=== PATIENT | female | born 1965 | race Caucasian/White ===

== ENCOUNTER 2019-09-09 07:28 | Outpatient (CLI) | payer OTHER, SELFPAY ==
--- NOTE | ~2019-09-09 | CT_ITS ---
EXAMINATION: CT abdomen pelvis wo/w con DATE: 09/09/2019 08:28 INDICATION: Hematuria, right-sided back pain TECHNIQUE: Computed tomography (CT) of the abdomen and pelvis was performed without intravenous contr ast. CT of the abdomen and pelvis was then performed with a total of 130 mL Omnipaque 350 intravenous contrast using a double-bolus technique for simultaneous opacification of the renal parenchyma and r enal collecting system. The dose-length product (DLP) was 3046.71 mGy-cm. Automated exposure control and iterative reconstruction technique were employed. COMPARISON: None FINDINGS: Minimal dependent atelectasis is present in the lung bases. The heart size is normal. The l iver, spleen, pancreas, and right adrenal gland are normal. There is a 1.2 cm nodule of the left adre nal gland. Multiple stones are present in the nondistended gallbladder. There does appear to be mild gallbladder wall thickening. The kidneys are unremarkable. No suspicious renal or urothelial lesion i s identified. Although incompletely distended, the bladder appears normal. No stones are identified i n the kidneys, ureters, or bladder. There is no hydronephrosis or hydroureter. No pathologically enla rged abdominal or pelvic lymph nodes are identified. There is no free intraperitoneal gas or evidence of bowel obstruction. There are changes of hysterectomy and oophorectomy. A 6.5 x 4.3 cm predominant ly cystic mass is seen in the left ovary. There is mild to moderate lumbar spondylosis. IMPRESSION: 1. No CT correlate for hematuria. 2. Cholelithiasis with mild gallbladder wall thickening which could reflect chronic cholecystitis. Re commend clinical correlation for right upper quadrant tenderness. 3. 6.5 cm mass of the left ovary. Further evaluation with ultrasound is recommended. Reviewed, dictated and finalized at location A. CADDY IMPRESSION: 1. No CT correlate for hematuria. 2. Cholelithiasis with mild gallbladder wall thickening which could reflect chr onic cholecystitis. Recommend clinical correlation for right upper quadrant ten derness. 3. 6.5 cm mass of the left ovary. Further evaluation with ultrasound is recomme nded.
[2019-09-09 08:07] LABS: Blood Urea Nitrogen 16 mg/dL (8-26); Estimated Glomerular Filt Rate > 60
== END 2019-09-09 07:29 | disposition home or self-care (01) ==
PROVIDERS: PCP Physician Assistant; Visit Provider Family Medicine
DX: R31.9 Hematuria, unspecified (principal); K80.20 Calculus of gallbladder without cholecystitis without obstruction
CPT/HCPCS: 74178; Q9967

== ENCOUNTER 2019-09-18 10:30 | Outpatient (CLI) | payer OTHER, SELFPAY ==
--- NOTE | ~2019-09-18 | US_ITS ---
EXAMINATION: US pelvic complete w TV DATE: 09/18/2019 11:12 INDICATION: Left ovarian mass seen on recent CT Comparison:No prior studies for comparison. TECHNIQUE: Multiple transabdominal sonographic images of the pelvis performed. FINDINGS: The uterus is surgically absent. The right ovary is surgically absent. The left ovary measures 5.6 x 4.3 x 4.4 cm. There is a complex cystic mass of the left ovary measuring 4.2 x 4.8 x 3.8 cm. No free fluid in the pelvis. IMPRESSION: 1. Complex 4.8 cm left ovarian cystic mass. Considerations include physiologic cyst, hemorrhagic cyst as well as cystadenoma/cystadenocarcinoma. Follow-up ultrasound in 4-6 weeks recommended to assess f or resolution. Reviewed, dictated and finalized at location A. N DIPPER IMPRESSION: 1. Complex 4.8 cm left ovarian cystic mass. Considerations include physiologic cyst, hemorrhagic cyst as well as cystadenoma/cystadenocarcinoma. Follow-up ult rasound in 4-6 weeks recommended to assess for resolution.
== END 2019-09-18 10:31 | disposition home or self-care (01) ==
PROVIDERS: PCP Family Medicine; Visit Provider Family Medicine
DX: N83.9 Noninflammatory disorder of ovary, fallopian tube and broad ligament, unspecified (principal)
CPT/HCPCS: 76830; 76856

== ENCOUNTER 2019-10-07 01:06 | Day surgery (SDC) | payer OTHER, SELFPAY ==
--- NOTE | 2019-10-07 07:24 | WPDHPUPDATE1 ---
History and Physical Update Update Date/Time: 10/07/19 07:24 History and Physical has been reviewed, including an updated exam of the patient. There are NO changes in the patient's condition. Risks, benefits, and alternatives have been discussed and questions answered. Patient agrees to proceed with procedure.
[2019-10-07 07:51] VITALS: BP 135/80; PULSE 89; RESP 20; TEMP 36.9; O2SAT 96
[2019-10-07] MEDS: LACTATED RINGERS 1,000 ML 30 ML IV CONT (08:20)
--- NOTE | 2019-10-07 08:31 | WPDANESEPPF ---
Anes - Initial Pre Proc Eval Procedure: Operation Date: 10/07/19 09:15 Proposed Procedures p Cystoscopy Bladder Biopsy - Mahin Smith MD Date/Time: 10/07/19 08:31 Surgeon: Mahin Smith MD Pre Op Diagnosis: Gross Hematuria Patient Data Age: 54 Gender: F Height: Weight: 136 kg Allergies Allergy/AdvReac Type Severity Reaction Status Date / Time No Known Allergies Allergy Unverified 10/07/19 08:29 Home Medications Medication Instructions Recorded Confirmed Type meloxicam 15 mg PO DAILY 07/28/19 10/05/19 History quinapril-hydrochlorothiazide 1 tablet PO DAILY 07/28/19 10/05/19 History aspirin [Aspirin Low Dose] 81 mg PO DAILY 10/05/19 10/05/19 History lactobacillus combination no.8 2 mmu cells PO DAILY 10/05/19 10/05/19 History [Adult Probiotic] Patient hx anesthesia problems: none Family hx anesthesia problems: post op nausea/vomiting PMFSH Past Medical History Medical History Hypertension Surgical History Surgical History History of History of tubal ligation Anes - Eval Final PreProcedure Day of Procedure 10/07/19 08:31 Patient weight: morbidly obese Heart: regular rate and rhythm Lungs: clear to auscultation Airway: Mallampati scale class II Neurological: alert and oriented Last oral intake: >/= 8 hours ASA classification: III Emergent: no Anesthetic plan: proceed Anesthesia type and monitoring: general GIVS and standard monitoring Informed Consent: The patient's anesthetic plan and its attendant risks and benefits were discussed with the patient/family/POA. Questions were solicited and answers provided to the satisfaction of the patient/family/POA.
[2019-10-07] MEDS: KETOROLAC 30 MG/ML VIAL (*BKC) IV PUSH (09:39)
--- NOTE | 2019-10-07 09:50 | P.OP_ITS ---
Procedure Note - Detailed Date of procedure: 10/07/19 Pre-op diagnosis: Gross Hematuria Post-op diagnosis: same Procedure performed: Cystoscopy with bladder biopsy Description of procedure: The patient is brought to the operative suite where s he is prepped and draped in a routine sterile fashion while in the dorsal lithotomy position. 2% lidocaine jelly was introduced in the urethra and allowed to stand for an appropriate period of time. Systemic sedation was administered by the anesthesia department. Cystoscopy was undertaken with a 21 F rigid cystoscope. The bladder neck and urethra were endoscopically normal. Cystoscopy with planned bladder biopsy today. The bladder now looks perfectly normal. She told me preoperatively that she passed a small stone or clot several days ago and has since had no problems. I suspect that she the area of hyperemia lateral to her left ureteral orifice was likely a small intramural ureteral stone that was not identified on the CT scan. I did go ahead and get a small biopsy from that side but suspect it will be normal.There was no intravesical foreign body or neoplasm. She had a single orthoptic ureteral orifice bilaterally. There was clear efflux from each ureteral orifice. Using a cold-cup biopsy forceps I obtained 1 biopsies from the previously affected area and extensively cauterized the sites with a rollerball electrode. At this point the cystoscope was removed. Anesthesia: MAC Surgeon: Mahin Smith MD Estimated blood loss (mL): 0 Drains: No Packing: No Pathology: yes Complications: No immediate complications Condition: stable Disposition: PACU
[2019-10-07 09:53] VITALS: BP 129/81; PULSE 83; RESP 16; O2SAT 98
[2019-10-07 10:15] VITALS: BP 141/76; PULSE 82; RESP 16; O2SAT 98
[2019-10-07 10:30] VITALS: BP 149/77; PULSE 71; RESP 16
== END 2019-10-07 10:41 | disposition home or self-care (01) ==
PROVIDERS: PCP Physician Assistant; Visit Provider Urology
PROC: 0TBB8ZX Excision of Bladder, Via Natural or Artificial Opening Endoscopic, Diagnostic (ICD-10-PCS; CPT 52204; principal; 2019-10-07 09:15)
DX: N30.20 Other chronic cystitis without hematuria (principal); I10 Essential (primary) hypertension; Z79.82 Long term (current) use of aspirin; E66.01 Morbid (severe) obesity due to excess calories
CPT/HCPCS: 52204; 88108; 88305; J1885; J2250; J2405; J2704; J3010; J7120

== ENCOUNTER 2019-12-18 07:40 | Outpatient (CLI) | payer OTHER, SELFPAY ==
--- NOTE | ~2019-12-18 | US_ITS ---
US pelvic complete w TV DATE: 12/18/2019 08:24 INDICATION: Complex left ovarian cyst follow-up TECHNIQUE: Real-time imaging via transabdominal and transvaginal approaches COMPARISON: 09/18/[address] abdomen pelvis FINDINGS: There is a complex left adnexal mass which is predominantly cystic, with multiple septation s. There is an approximately 1 cm mural soft tissue nodule. Malignancy is not excluded. The lesion me asures to 3.5 x 5.7 cm dimension. The uterus is absent. The right ovary is not detected. No free fluid is detected. IMPRESSION: Complex multiloculated cystic lesion with approximate 1 cm solid mural nodule. Ovarian or adnexal malignancy is not excluded. Gynecologic consultation is recommended. Reviewed, dictated and finalized at Location A. Reviewed, dictated and finalized at location A. IMPRESSION: Complex multiloculated cystic lesion with approximate 1 cm solid mu ral nodule. Ovarian or adnexal malignancy is not excluded. Gynecologic consulta tion is recommended.
== END 2019-12-18 07:41 | disposition home or self-care (01) ==
PROVIDERS: PCP Physician Assistant; Visit Provider Obstetrics & Gynecology Gynecology
DX: N83.202 Unspecified ovarian cyst, left side (principal)
CPT/HCPCS: 76830; 76856

== ENCOUNTER 2020-05-06 08:43 | Outpatient (CLI) | payer OTHER, SELFPAY ==
--- NOTE | ~2020-05-06 | US_ITS ---
EXAMINATION: US pelvic complete EXAM DATE: 05/06/2020 09:11 INDICATION: Left ovarian cyst follow-up. Hysterectomy and right oophorectomy. TECHNIQUE: Pelvic transabdominal sonogram was performed. There are multiple grayscale and Doppler im ages available for interpretation. Comparison is made to prior examination from 12/18/2019, 09/18/2019. FINDINGS: Uterus not identified. Bladder unremarkable. Vaginal cuff poorly visualized transabdominall y. Right adnexa: The ovary is not identified. There is no adnexal mass. Left adnexa: Left ovary has 2 cystic regions inside measuring 2.8 x 1.6 and 2.0 x 2.3 cm, although th iftikhar could actually be the same cystic region. There was similar appearance and size on the previous e xamination in December, likely the same lesion or lesions. Overall cystic component is smaller compared t o exam from September 2019. Possible cystic ovarian neoplasm but more likely indolent histology stable co mpared to December and decreased compared to September. IMPRESSION: Persistent small cystic left ovarian lesion or lesions, decreased in size compared to Sep ch. Possible cystic ovarian neoplasm but more likely benign than malignant. Reviewed, dictated and finalized at location A. IMPRESSION: Persistent small cystic left ovarian lesion or lesions, decreased i n size compared to September. Possible cystic ovarian neoplasm but more likely pao gn than malignant.
== END 2020-05-06 08:44 | disposition home or self-care (01) ==
PROVIDERS: PCP Physician Assistant; Visit Provider Obstetrics & Gynecology Gynecology
DX: N83.202 Unspecified ovarian cyst, left side (principal)
CPT/HCPCS: 76856

== ENCOUNTER → 2020-06-03 10:38 | Outpatient (CLI) | payer OTHER, SELFPAY ==
--- NOTE | ~2020-06-03 | US_ITS ---
EXAMINATION: US right upper quadrant EXAM DATE: 06/03/2020 11:04 INDICATION: RUQ Abd pain TECHNIQUE: Multiple grayscale and Doppler images of the abdomen right upper quadrant were obtained (april y a technologist who performed the scan) and subsequently reviewed. Correlation is made to CT abdomen 09/09/2019. FINDINGS: The pancreatic head and body are normal in appearance. The pancreatic tail is not visualized. There is echogenic liver parenchyma, hepatic steatosis. There are no focal liver lesions identified. Th ere is no evidence of intrahepatic biliary duct dilation. Portal venous flow was seen in the hepatop edal, normal direction and has normal Doppler waveform. No right-sided hydronephrosis. Common bile duct measures 4 mm, which is normal. There are several sizable gallstones surrounding an otherwise contracted gallbladder with mild wall thickening. No pericholecystic fluid. Technologist lazarus rforming exam reports patient did not demonstrate sonographic Stanley's sign. Please note that this s ign is less reliable in patients who have received pain medication. IMPRESSION: 1. Cholelithiasis, contracted gallbladder and mild wall thickening. Possible chronic cholecystitis. Consider HIDA scan. 2. Hepatic steatosis. Reviewed, dictated and finalized at location A. N CHECKER IMPRESSION: 1. Cholelithiasis, contracted gallbladder and mild wall thickening. Possible c hronic cholecystitis. Consider HIDA scan. 2. Hepatic steatosis.
== END ==
PROVIDERS: Visit Provider Family Medicine
DX: R10.11 Right upper quadrant pain (principal); K80.20 Calculus of gallbladder without cholecystitis without obstruction; K76.0 Fatty (change of) liver, not elsewhere classified
CPT/HCPCS: 76705

== ENCOUNTER 2020-06-26 02:00 | Outpatient (CLI) | payer OTHER, SELFPAY ==
[2020-06-26 18:35] LABS: SARS-CoV-2 RNA PCR Negative
== END 2020-06-26 02:01 | disposition home or self-care (01) ==
LOC: ANHCOVIDDT 02:00
PROVIDERS: PCP Family Medicine; Visit Provider Surgery
DX: Z01.812 Encounter for preprocedural laboratory examination (principal); Z20.828 Contact with and (suspected) exposure to other viral communicable diseases
CPT/HCPCS: 87635; C9803; U0003

== ENCOUNTER 2020-06-26 08:01 | Outpatient (CLI) | payer OTHER, SELFPAY ==
--- NOTE | 2020-06-26 08:04 | ECG_ITS ---
Measurements Intervals [place] Rate: 78 P: 37 IA: 178 QRS: -19 QRSD: 109 T: 24 QT: 386 QTc: 442 Interpretive Statements SINUS RHYTHM WITH SINUS ARRHYTHMIA POSSIBLE LEFT ATRIAL ENLARGEMENT POOR R WAVE PROGRESSION, ANTERIOR LEADS BORDERLINE ECG Electronically Signed On 06-26-2020 8:26:36 TRANSPORT OPERATIONS INSPECTOR by Nadir Chaparro D.O.
[2020-06-26 08:50] LABS: Anion Gap 8 mmol/L (8-16); Blood Urea Nitrogen 19 mg/dL (7-17); Calcium 9.6 mg/dL (8.4-10.2); Carbon Dioxide 27 mmol/L (22-30); Chloride 103 mmol/L (98-107); Estimated Glomerular Filt Rate > 60; Glucose 102 mg/dL (65-105); Potassium 3.9 mmol/L (3.4-5.0); Sodium 138 mmol/L (137-145)
[2020-06-26 08:51] LABS: Alanine Aminotransferase 29 U/L (4-35); Albumin Level 4.2 g/dL (3.5-5.1); Alkaline Phosphatase 111 U/L (38-126); Amylase 51 U/L (30-110); Aspartate Amino Transferase 25 U/L (14-36); Bilirubin,Total 0.8 mg/dL (0.2-1.3); Lipase 45 U/L (23-300)
== END 2020-06-26 08:02 | disposition home or self-care (01) ==
LOC: ANHSURGERY 08:04
PROVIDERS: Anesthesiology; PCP Physician Assistant; Visit Provider Surgery
DX: Z01.818 Encounter for other preprocedural examination (principal); K80.10 Calculus of gallbladder with chronic cholecystitis without obstruction; I10 Essential (primary) hypertension; R94.31 Abnormal electrocardiogram [ECG] [EKG]
CPT/HCPCS: 36415; 80048; 80076; 82150; 83690; 86850; 86900; 86901; 93005

== ENCOUNTER 2020-06-29 00:34 | Day surgery (SDC) | payer OTHER, SELFPAY ==
[2020-06-20 13:41] VITALS: BMI 51.0
[2020-06-29] VITALS (8 sets, daily range): BP systolic 128–152; BP diastolic 59–77; PULSE 67–111; RESP 12–24; TEMP 36.3–36.7; O2SAT 95–100; BMI 44.1
--- NOTE | 2020-06-29 09:49 | WPDHPUPDATE1 ---
History and Physical Update Update Date/Time: 06/29/20 09:49 History and Physical has been reviewed, including an updated exam of the patient. There are NO changes in the patient's condition. Risks, benefits, and alternatives have been discussed and questions answered. Patient agrees to proceed with procedure.
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
[2020-06-29] MEDS: LACTATED RINGERS 1,000 ML 30 ML IV CONT ×2 (10:59→12:34)
[2020-06-29] MEDS: KETOROLAC 15 MG/ML VIAL (*BKC) IV PUSH (11:00)
[2020-06-29] MEDS: ACETAMINOPHEN 500 MG TABLET 1000 MG PO (11:00)
[2020-06-29] MEDS: ceFAZolin 3 GM/D5W 100 ML 100 ML IVPB (11:25)
--- NOTE | 2020-06-29 11:30 | P.OP_ITS ---
Procedure Note - Detailed Date of procedure: 06/29/20 Pre-op diagnosis: chronic cholecystitis with stones Chronic cholecystitis, cholelithiasis Post-op diagnosis: same Procedure performed: Laparoscopic cholecystectomy Description of procedure: The patient was taken to surgery and induced into general anesthesia. The abdomen was prepped and draped. Trocars were placed in the usual fashion using 0.5% Marcaine with epinephrine and applied Medical optical trocars. A 5 millimeter camera was used. The gallbladder was decompressed with a laparoscopic aspirator. The cholecystotomy was closed with a Vicryl endo-loop. The gallbladder was retracted anterosuperiorly. Adhesions to the gallbladder were taken down so that the cholecystohepatic triangle was exposed. Traction was placed on the infu ndibulum. The cystic duct and cystic artery were dissected out very clearly. The gallbladder was dissected off the liver at its lower 3rd. Critical view was achieved. We securely clipped and divided the cystic duct and cystic artery. The gallbladder was then further retracted so that the peritoneal attachments to the liver could be divided. Once the gallbladder was freed entirely, it was placed in an Endo-Catch bag and retrieved through the 10 11 epigastric trocar site. The epigastric trocar was then replaced. We reviewed the right upper quadrant. It was irrigated and suctioned. All looked good with no evidence of bleeding or bile leakage. The Ugo Cone and Ugo Adan suture passed was used with 0 vicryl suture to close the epigastric trocar site. It was only partially effective. We evacuated CO2 and removed the trocar sleeves. The fascia at the epigastric trocar site was further closed directly with 0 Vicryl suture. Skin wounds were closed with subcuticular 4 O Monocryl skin suture. The wounds were dressed with Exofin surgical adhesive. Patient was awakened and taken to recovery in good condition. Sponge and needle counts were correct x2. Anesthesia: GETA and local (0.5% Marcaine with epinephrine) Surgeon: Triston Herrera MD Stitcher Special Machine: Cat DIALLO Estimated blood loss (mL): 5 Drains: No Packing: No Pathology: yes (Gallbladder) Complications: None Condition: stable Disposition: PACU Findings: Chronic inflammation, several large gallstones noted. No biliary ductal dilatation, fatty liver changes.
[2020-06-29] MEDS: BUPIVACAINE/EPINEPHRINE 0.25% 10 ML VIAL 30 ML INFILTRATE (11:57)
[2020-06-29] MEDS: oxyCODONE HCL (*CRX) 5 MG TAB IR PO (13:40)
== END 2020-06-29 14:35 | disposition home or self-care (01) ==
PROVIDERS: PCP Physician Assistant; Visit Provider Surgery
PROC: 0FT44ZZ Resection of Gallbladder, Percutaneous Endoscopic Approach (ICD-10-PCS; CPT 47562; principal; 2020-06-29 12:00)
DX: K80.10 Calculus of gallbladder with chronic cholecystitis without obstruction (principal); F32.9 Major depressive disorder, single episode, unspecified; I10 Essential (primary) hypertension; E66.01 Morbid (severe) obesity due to excess calories; Z68.41 Body mass index [BMI] 40.0-44.9, adult
CPT/HCPCS: 47562; 88304; A9270; C1713; J0690; J1100; J1885; J2250; J2405; J2704; J2710; J3010; J7120

== ENCOUNTER 2021-07-03 17:39 | Outpatient (CLI) | payer OTHER, SELFPAY ==
--- NOTE | ~2021-07-03 | MM_ITS ---
EXAMINATION: MM screening souleymane BI w curt HISTORY: Screening mammogram TECHNIQUE: Craniocaudal and mediolateral oblique 3-D tomosynthesis images were obtained and synthetic 2-D images were generated. CAD analysis was submitted and interpreted. COMPARISON: 07/24/2019, 06/13/2018, 12/23/2015 bilateral screening mammogram examinations BREAST PARENCHYMAL COMPOSITION: The breasts are almost entirely fatty. FINDINGS: Stable mild asymmetry in the superolateral left subareolar area. There is no evidence of [place] spicious mass, calcification, or architectural distortion to suggest malignancy in either breast. The re has been no suspicious interval change. IMPRESSION: 1. No mammographic evidence of malignancy. 2. Recommend routine screening mammography in one year. BI-RADS Category 2: Benign finding(s). Reviewed, dictated and finalized at location B. STANT DIRECTOR OF ADMISSIONS
== END 2021-07-03 17:40 | disposition home or self-care (01) ==
LOC: ANHIMG 17:44
PROVIDERS: PCP Physician Assistant; Visit Provider Physician Assistant
DX: Z12.31 Encounter for screening mammogram for malignant neoplasm of breast (principal)
CPT/HCPCS: 77063; 77067

== ENCOUNTER 2022-01-28 13:54 | Outpatient (CLI) | payer OTHER, SELFPAY ==
--- NOTE | 2022-01-28 15:04 | ECG_ITS ---
Measurements Intervals [place] Rate: 65 P: 16 WV: 180 QRS: -23 QRSD: 110 T: 30 QT: 423 QTc: 440 Interpretive Statements SINUS RHYTHM WITH SINUS ARRHYTHMIA POOR R WAVE PROGRESSION, ANTERIOR LEADS BASELINE ARTIFACT- I, II, III, AVR, AVL, AVF BORDERLINE ECG Electronically Signed On 01-28-2022 18:49:14 CDT by Nadir Chaparro D.O.
[2022-01-28 15:36] LABS: Basophils Percent Auto 0.4 % (0.2-1.2); Eosinophils Absolute Auto 0.2 K/mm3 (0-0.3); Eosinophils Percent Auto 1.9 % (0-4.4); Hematocrit 43.7 % (37.0-47.0); Hemoglobin 14.1 g/dL (12.0-15.0); Immature Granulocyte Absolute 0.02 K/mm3 (0.00-0.031); Immature Granulocyte Percent A 0.2 % (0-0.5); Lymphocytes Absolute Auto 3.06 K/mm3 (0.9-3.2); Lymphocytes Percent Auto 32.8 % (18.3-44.2); Mean Corpuscular HGB Conc 32.3 g/dl (32-36); Mean Corpuscular Hemoglobin 28.1 pg (26-34); Mean Corpuscular Volume 87.2 fl (80-100); Mean Platelet Volume 11.5 fl (7.4-10.4); Monocytes Absolute Auto 0.6 K/mm3 (0.1-0.6); Monocytes Percent Auto 6.5 % (2.6-8.5); Neutrophils Absolute Auto 5.4 K/mm3 (1.3-6.7); Neutrophils Percent Auto 58.2 % (45.5-73.1); Platelet Count Result 342 k/mm3 (150-375); Red Blood Count 5.01 M/mm3 (4.2-5.4); Red Cell Distribution Width 14.2 % (11.5-14.5); White Blood Count 9.3 K/mm3 (4.5-10.0)
[2022-01-28 15:44] LABS: Albumin Level 4.8 g/dL (3.5-5.1); Anion Gap 6 mmol/L (8-16); Blood Urea Nitrogen 27 mg/dL (7-17); Calcium 9.6 mg/dL (8.4-10.2); Carbon Dioxide 28 mmol/L (22-30); Chloride 101 mmol/L (98-107); Estimated Glomerular Filt Rate 58; Glucose 88 mg/dL (65-110); Potassium 3.9 mmol/L (3.4-5.0); Sodium 135 mmol/L (137-145)
[2022-01-28 15:48] LABS: Urine Cotinine NEGATIVE
[2022-01-28 15:50] LABS: Hemoglobin A1C 5.1 % (<5.7)
== END 2022-01-28 13:55 | disposition home or self-care (01) ==
PROVIDERS: PCP Physician Assistant; Visit Provider Orthopaedic Surgery
DX: M16.12 Unilateral primary osteoarthritis, left hip (principal); Z01.818 Encounter for other preprocedural examination; R94.31 Abnormal electrocardiogram [ECG] [EKG]
CPT/HCPCS: 80048; 80307; 82040; 83036; 85025; 87070; 93005

== ENCOUNTER 2022-02-11 01:52 | Day surgery (SDC) | payer OTHER, SELFPAY ==
--- NOTE | 2022-01-28 14:05 | PC.NURSE ---
Report to the Outpatient Waiting Room, entrance under the green pavilion located off [facility], at time _0600_ on date _02/11/22_. OR Time: _0730_. - You and your visitor will be asked a series of questions to screen for COVID 19 for your protection. - Only one visitor is allowed at this time. - A mask is required within the hospital. - The patient visitor is requested to leave or wait in car when not with patient. - PACK A SMALL OVERNIGHT BAG, BRING YOUR WALKER AND LEAVE IN THE CAR. VISITING HOURS 10AM-8PM, PARK IN FRONT AND USE THE MAIN HOSPITAL ENTRANCE Patients may have clear liquids (water, carbonated beverages, clear teas, apple juice) until 3 hours prior to surgery (0430 AM) with a maximum of 20 ounces. - No food from midnight until time of surgery Take the following medications with a SIP of water the morning of surgery: __PAIN MED IF NEEDED__ Medications to discontinue per DR. CARR - DICLOFENAC 7 DAYS PRIOR TO SURGERY, Date to take last dose 02/03/22__ Medications to discontinue per ANESTHESIA - VITAMINS AND PRO-BIOTIC 3 DAYS PRIOR TO SURGERY, Date to take last dose 02/07/22_ Please no make-up, nail amharic, hairspray, perfume, deodorant, or body powder the day of surgery. No jewelry (including any body piercings) or valuables the day of surgery, leave them at home. Please take a shower or bath the night before, or the morning of, surgery with an antibacterial soap. Wear comfortable, loose fitting clothing. - Jewelry must be removed prior to entering the operating room. Rings and piercings that are not removed may be cut off. - The hospital will not accept responsibility for valuables. - Please leave all valuables, including medications, at home the day of surgery. If you are going home after surgery, a licensed water tanker driver must drive you home. - NO public transportation without another adult. - We recommend that an adult stay with you for 24 hours following discharge. - We also recommend that you do not drive, make important decision, drink alcoholic beverages, or take any drugs that were not prescribed by your health care provider for at least 24 hours after your discharge time. Follow any additional instructions given to you from your surgeon. If you or anyone in your household have experienced Covid symptoms in the past week, please notify your surgeon or the nurse liaison at the phone number below for possible testing. Instructions given to ____PT and asked if any additional questions and then verbalized understanding. Patient advised to call surgeon office or pre surgery nurse liaison [phone] if any additional questions.
[2022-01-28 14:21] VITALS: BP 114/78; PULSE 90; RESP 20; TEMP 36.9; O2SAT 98; BMI 40.6
--- NOTE | 2022-01-28 15:02 | PC.NURSE ---
PT 5'3 & 104KG = 40.6 BMI. PT STATES HAS LOST 84LBS SINCE DECEMBER 2020 AND HAS BEEN ON A 1200 ADA DIET SINCE FEBRUARY 2021. SURGERY PLANNED FOR 02/11/22. PT INFORMED OF BMI<40 NEEDED FOR TOTAL HIP SURGERY AND WEIGHT LOSS OF 4LBS WOULD BE 40 AND 5LBS WOULD BE 39.8 UNDERSTANDING VOICED AND PT STATES APPT WITH DR. CARR 01/30/22 TO DISCUSS WEIGHT AND UPCOMING SURGERY.
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
[2022-02-11] VITALS (13 sets, daily range): BP systolic 102–142; BP diastolic 57–89; PULSE 66–104; RESP 12–20; TEMP 35.9–36.7; O2SAT 93–100
--- NOTE | ~2022-02-11 | XR_ITS ---
EXAMINATION: XR hip LT 1V w AP pelvis DATE: 02/11/2022 11:34 INDICATION: Left hip arthroplasty. Postop. TECHNIQUE: An anteroposterior view of the pelvis and single view of left hip were obtained. COMPARISON: None. FINDINGS: There is a total left hip arthroplasty in near-anatomic alignment. No fracture. A surgical drain overlies the soft tissues. There is a benign bone island in right inferior pubic ramus. There i s mild right hip osteoarthritis. IMPRESSION: 1. Total left hip arthroplasty in near-anatomic alignment. Reviewed, dictated and finalized at location A.
--- NOTE | ~2022-02-11 | XR_ITS ---
EXAMINATION: XR surgery orthopedic DATE: 02/11/2022 11:15 INDICATION: Anterior approach left total hip arthroplasty TECHNIQUE: Single frontal fluoroscopic spot image of the left hip was obtained during procedure perfo rmed by Dr. Valentin. Radiologist was not present for the imaging or procedure. The amount of fluorosc opy time used during this procedure was 1.0 minutes. COMPARISON: None. FINDINGS: Left total hip arthroplasty which appears well seated in near-anatomic alignment. No fracture identif ied. IMPRESSION: 1. Expected appearance during left total hip arthroplasty. See procedure note for further detail. Reviewed, dictated and finalized at location A. IMPRESSION: 1. Expected appearance during left total hip arthroplasty. See procedure note f or further detail.
[2022-02-11] MEDS: LACTATED RINGERS 1,000 ML 30 ML IV CONT ×2 (07:09→11:30)
[2022-02-11] MEDS: ACETAMINOPHEN 500 MG TABLET 1000 MG PO ×3 (07:10→17:06)
--- NOTE | 2022-02-11 07:12 | WPDHPUPDATE1 ---
History and Physical Update Update Date/Time: 02/11/22 07:12 History and Physical has been reviewed, including an updated exam of the patient. There are NO changes in the patient's condition. Risks, benefits, and alternatives have been discussed and questions answered. Patient agrees to proceed with procedure.
[2022-02-11] MEDS: TRANEXAMIC ACID 1,000MG/ISO100 1,000 MG/100 ML BAG 200 MG IVPB (07:13)
[2022-02-11] MEDS: ceFAZolin 2 GM/D5W 50 ML 2 GM/50 ML BAG IVPB (07:37)
[2022-02-11] MEDS: ceFAZolin SODIUM 1 GM VIAL 3 GM (07:53)
[2022-02-11] MEDS: TRANEXAMIC ACID 1,000 MG/10 ML AMPUL 1000 MG IV PUSH (10:49)
[2022-02-11] MEDS: ceFAZolin SODIUM 1 GM VIAL IV PUSH (10:49)
--- NOTE | 2022-02-11 11:13 | W.PM.PROC2 ---
Procedure Note - Detailed Date of Procedure 02/11/22 Pre-op Diagnosis O.A. Left Hip, extreme obesity Post-op Diagnosis Same Procedure Performed Direct anterior approach left total hip arthroplasty Surgeon Eddie Valentin MD Area Manager kirt Anesthesia General Description of Procedure There was extra difficulty with the procedure due to BMI 40 which added approximately 1 hour of surgical time to the procedure and increased difficulty. Patient was brought to the operating room and general anesthesia was administered. She received 2 g of Ancef weight based vancomycin and 1 g of tranexamic acid preoperatively. Patient was placed on the [employer] table boots applied the feet with additional padding the left hip prepped draped usual fashion. The skin in the groin area showed no erythema or rash. A 10 cm longitudinal incision was made starting 3 cm lateral to the ASIS dissection was carried down to the fascia of the tensor fascia ulysses which was exposed and longitudinally incised elevated off the anterior 1/2 the TFL muscle. Interval between TFL and rectus femoris was developed. Crossing vessels branches of ascending lateral femoral circumflex trunk were isolated ligated with suture and divided. The plaque retractor was placed anterior to the anterior capsule and the hip abducted internally rotated and the gluteus minimus which looked normal, was elevated off the lateral capsule. Capsule was incised in an inverted T-fashion and femoral neck osteotomy made according to preoperative templating. The femoral head was removed. Measured 46 mm in diameter. The acetabulum was exposed. It was severely arthritic. The superior lateral osteophyte the acetabulum was broken this was removed. There is no remaining cartilage. The fovea was completely overgrown with osteophyte. Therefore, we used fluoro to observe the medialization with a 40 mm Reamer. We reamed up to size 47 with a light reaming with a 48 in the 48 trial was snug. The impacted the 48 mm acetabular shell which seated fully with appropriate amount of impaction with a tight fit. A single screw was placed in the ilium. Finally the 32 inner diameter polyethylene liner was fully seated. Her acetabular bone was quite hyperemic and this is where the majority of blood loss occurred and with seating of the polyethylene insert bleeding throughout the rest the procedure was very minimal. We placed the cup at 40? of abduction and anteversion to match the anatomy. The femur was externally rotated and extended. The interval between conjoined tendon and piriformis was incised allowing the piriformis to flipped posteriorly and this gave us enough mobilization to access the femur. We broached up to a size 4 which became tight with no torsional play. The hip was reduced stability was confirmed and leg lengths looked appropriate. Offset also looked appropriate. We calcar planed with the saw and shows the Actis size 4 standard offset stem which seated fully with excellent fit. I then trialed with the +9 head and this was too tight with no Shuck difficult to dislocate. The size 5 again had normal stability but had a little bit of Shuck with longitudinal pull. The size 5 ceramic 32 mm head was impacted on the clean and dried trunnion and the wound further irrigated with antibiotic solution hip reduced stability reconfirmed. Capsular flaps were reapproximated superiorly with 2. Vicryl loosely. Fascia was closed with 1. Running Vicryl a drain placed in the subcu skin closed with 2 subcutaneous Vicryl and glue. EBL was 1300 cc and she received 600 cc back at [facility]. At wound closure 2 additional g of Ancef 1 and 1 g tranexamic acid was given. I felt bone quality would allow weight-bearing as tolerated with walker. She was transferred to postoperative recovery cover in good condition. No known complications and she tolerated the anesthesia well. Estimated Blood Loss 1,300 Drains Yes Condition Stable Disposition
--- NOTE | 2022-02-11 11:38 | PM.OP ---
Procedure Note - Brief Procedure Note - Brief Date of procedure: 02/11/22 Pre-op diagnosis: O.A. Left Hip Left hip DJD Procedure performed: Left anterior total hip arthroplasty Description of procedure: Patient underwent left total knee arthroplasty on 02/11. I was present for the entire time case. That included positioning the patient on exam OR table, prepping and draping, 1st assisting to the time of surgery as well as wound closure. I was also involved in getting patient transferred to recovery after surgery. Total time spent was 4 hours Surgeon: GIANCARLO Bunch
--- NOTE | 2022-02-11 11:41 | SUR.PHASEI ---
1133- oral airway removed
--- NOTE | 2022-02-11 13:11 | PC.NURSE ---
This patient, Ashley Roth, was admitted to 2 Medical Room 253-01. Patient/family oriented to hospital policies and general routines including ID bracelet, bed and alarms, visiting hours, pain management, procedures, bathroom and other care routines, personal items, smoking policy, room service/diet, and visiting hours. Information on how to activate the Rapid Response Team has been discussed. Patient/Family are encouraged to report perceived risks to care and to ask questions if they do not understand what they are told or what they should do.
[2022-02-11] MEDS: MORPHINE SULFATE (*CRX) 2 MG/ML INJ IV PUSH (13:34)
[2022-02-11] MEDS: oxyCODONE HCL (*CRX) 5 MG TAB IR PO ×2 (13:50→16:53)
[2022-02-11] MEDS: SODIUM CHLORIDE 0.9% IV 1,000 ML 125 ML IV CONT (13:53)
[2022-02-11] MEDS: SENNA/DOCUSATE SODIUM TABLET 2 TAB PO (17:06)
[2022-02-11] MEDS: FAMOTIDINE 20 MG TABLET PO (22:34)
[2022-02-11] MEDS: CHOLECALCIFEROL 1,000 UNITS TABLET 1000 UNITS PO (22:34)
[2022-02-12] MEDS: ACETAMINOPHEN 500 MG TABLET 1000 MG PO ×2 (00:24→06:27)
[2022-02-12 05:15] VITALS: BP 100/48; PULSE 101; RESP 20; TEMP 36; O2SAT 98
[2022-02-12 05:53] LABS: Basophils Percent Auto 0.1 % (0.2-1.2); Eosinophils Percent Auto 0.1 % (0-4.4); Hematocrit 34.9 % (37.0-47.0); Hemoglobin 11.3 g/dL (12.0-15.0); Immature Granulocyte Absolute 0.05 K/mm3 (0.00-0.031); Immature Granulocyte Percent A 0.4 % (0-0.5); Lymphocytes Absolute Auto 2.96 K/mm3 (0.9-3.2); Lymphocytes Percent Auto 20.9 % (18.3-44.2); Mean Corpuscular HGB Conc 32.4 g/dl (32-36); Mean Corpuscular Hemoglobin 28.4 pg (26-34); Mean Corpuscular Volume 87.7 fl (80-100); Mean Platelet Volume 11.6 fl (7.4-10.4); Monocytes Percent Auto 6.8 % (2.6-8.5); Neutrophils Absolute Auto 10.2 K/mm3 (1.3-6.7); Neutrophils Percent Auto 71.7 % (45.5-73.1); Platelet Count Result 258 k/mm3 (150-375); Red Blood Count 3.98 M/mm3 (4.2-5.4); Red Cell Distribution Width 13.9 % (11.5-14.5); White Blood Count 14.2 K/mm3 (4.5-10.0)
[2022-02-12 06:14] LABS: Anion Gap 6 mmol/L (8-16); Blood Urea Nitrogen 14 mg/dL (7-17); Calcium 8.2 mg/dL (8.4-10.2); Carbon Dioxide 26 mmol/L (22-30); Chloride 101 mmol/L (98-107); Estimated CRCL calculation 89 ml/min; Estimated Glomerular Filt Rate > 60; Glucose 150 mg/dL (65-110); Potassium 4.2 mmol/L (3.4-5.0); Sodium 133 mmol/L (137-145)
--- NOTE | 2022-02-12 06:19 | PM.PNORT ---
Subjective Subjective Date/Time Seen: 02/12/22 06:19 postop day 1 patient is alert. She has been afebrile, blood pressure just slightly low but asymptomatic from this. Morning labs are noted. Hemoglobin is 11.3. Dressing is dry. Drain will be removed this morning. Patient was up multiple times yesterday as well as overnight to the restroom and tolerating things well. Pain is well controlled. Neurovascularly she is intact. Overall patient is doing well. We will plan to have patient work with physical therapy today and discharge her home either late this morning or early this afternoon depending how she does with therapy. Objective Data Vital Signs Vital Signs: Vital Signs - 24 hr 02/11/22 07:19 02/11/22 11:30 02/11/22 11:45 Temperature 36.1 C L 36.3 C L Pulse Rate 95 103 H 99 Respiratory Rate 16 20 16 Blood Pressure 131/66 142/89 H 135/80 Pulse Oximetry 100 98 97 Oxygen Delivery Room Air Simple Face Mask Room Air Oxygen Flow Rate 10 02/11/22 12:02 02/11/22 12:19 02/11/22 12:37 Temperature Pulse Rate 71 66 74 Respiratory Rate 18 12 14 Blood Pressure 130/74 134/74 140/68 Pulse Oximetry 94 93 96 Oxygen Delivery Room Air Room Air Room Air Oxygen Flow Rate 02/11/22 15:01 02/11/22 12:55 02/11/22 13:10 Temperature 36.2 C L 36.3 C L Pulse Rate 68 66 Respiratory Rate 16 16 Blood Pressure 125/68 126/68 Pulse Oximetry 98 100 Oxygen Delivery Room Air Oxygen Flow Rate 02/11/22 13:40 02/11/22 14:40 02/11/22 17:48 Temperature 36.3 C L 36.6 C 36.7 C Pulse Rate 104 H 97 97 Respiratory Rate 18 16 16 Blood Pressure 104/62 112/64 108/57 L Pulse Oximetry 98 98 98 Oxygen Delivery Oxygen Flow Rate 02/11/22 19:43 02/11/22 23:28 02/12/22 05:15 Temperature 36.2 C L 35.9 C L 36.0 C L Pulse Rate 80 95 101 H Respiratory Rate 20 20 20 Blood Pressure 102/66 114/60 100/48 L Pulse Oximetry 99 96 98 Oxygen Delivery Oxygen Flow Rate Intake/Output Intake/Output: Intake & Output 02/09/22 02/10/22 02/11/22 02/12/22 23:59 23:59 23:59 23:59 Intake Total 1440 1013 Output Total 990 Balance 1440 23 Meds/Results Medications: Active Medications Generic Name Dose Route Start Last Admin Trade Name Freq PRN Reason Stop Dose Admin Acetaminophen 1,000 mg 02/11/22 12:58 02/12/22 00:24 Acetaminophen 500 Mg Tablet PO 1,000 mg Q6HR JACKIE Administration Apixaban 2.5 mg 02/12/22 09:00 Apixaban 2.5 Mg Tablet PO 03/18/22 21:01 Q12HR JACKIE Celecoxib 200 mg 02/12/22 09:00 Celecoxib 200 Mg Capsule PO DAILY JACKIE Cephalexin HCl 500 mg 02/12/22 12:00 Cephalexin 500 Mg Capsule PO Q6HR JACKIE Famotidine 20 mg 02/11/22 21:00 02/11/22 22:34 Famotidine 20 Mg Tablet PO 20 mg Q12HR JACKIE Administration Hydrochlorothiazide 25 mg 02/12/22 09:00 Hydrochlorothiazide 25 Mg Tablet PO QAM JACKIE Hydroxyzine HCl 50 mg 02/11/22 12:58 Hydroxyzine Hcl 25 Mg Tablet PO Q4H PRN Itching Vancomycin HCl 1,000 mg in 250 mls @ 250 mls/hr 02/11/22 19:00 02/12/22 05:52 Vancomycin 1,000 Mg/D5w 250 Ml IVPB 02/12/22 07:59 250 mls/hr Q12H JACKIE Administration Cefazolin Sodium 1 gm in 50 mls @ 100 mls/hr 02/11/22 16:00 02/12/22 00:54 Ancef 1 Gm/D5w 50 Ml Pm IVPB 02/12/22 08:29 Infused Q8H JACKIE Infusion Lisinopril 20 mg 02/12/22 09:00 Lisinopril 20 Mg Tablet PO QAM JACKIE Morphine Sulfate 2 mg 02/11/22 12:58 02/11/22 13:34 Morphine Sulfate (*Crx) 2 Mg/Ml Inj IV PUSH 2 mg Q3H PRN Administration Pain Rated 7-10 Naloxone HCl 0.1 mg 02/11/22 12:58 Naloxone Hcl 0.4 Mg/Ml Vial IV PUSH Q2M PRN Opiate Reversal Ondansetron HCl 4 mg 02/11/22 12:58 Ondansetron Inj 4 Mg/2 Ml Vial IV PUSH Q4H PRN Nausea And Vomiting Oxycodone HCl 5 mg 02/11/22 12:58 02/12/22 05:51 Oxycodone Hcl (*Crx) 5 Mg Tab Ir PO Not Given Q4H JACKIE Oxycodone HCl 5 mg 02/11/22 12:58 Oxyco
--- NOTE | 2022-02-12 06:25 | PM.DS ---
DS: Admitting Diagnosis Discharge Date 02/12 Admitting Diagnosis Left hip DJD DS: Discharge Diagnosis Discharge Diagnosis Plan 56-year-old female who underwent left anterior total arthroplasty on 02/11. Underwent procedure without complications. Postoperatively she has been afebrile vital signs are stable. Blood pressure was a little soft but patient tolerated this well. She was up walking the day of surgery into the restroom multiple times overnight the day of surgery. Pain is well controlled with scheduled Tylenol as well as oxycodone 5 mg. She is on Celebrex for 10 days for HO prophylaxis. She will also go home on a 12 day course of Keflex as well as Senokot and MiraLax. Patient was advised to keep leg elevated at home to prevent swelling. She is weight-bearing as tolerated. She is neurovascularly intact. Patient was advised any questions or concerns she is to call the office otherwise we will see her at her point to date. DS: Summary Hospital Course Hospital Course: Stable Time Spent with Patient Time attestation: Total time spent providing and/or coordinating discharge services: DS: Data Data Completed and Pending Labs on day of discharge: Labs from last 24 hours 02/12/22 02/12/22 02/11/22 05:36 05:36 07:26 WBC 14.2 H RBC 3.98 L Hgb 11.3 L Hct 34.9 L MCV 87.7 MCH 28.4 MCHC 32.4 RDW 13.9 Plt Count 258 MPV 11.6 H Immature Gran % (Auto) 0.4 Neut % (Auto) 71.7 Lymph % (Auto) 20.9 [place] % (Auto) 6.8 Eos % (Auto) 0.1 Baso % (Auto) 0.1 L Lymph # (Auto) 2.96 [place] # (Auto) 1.0 H Eos # (Auto) 0.0 Baso # (Auto) 0.0 Abs Immat Gran (auto) 0.05 H Absolute Neuts (auto) 10.2 H Absolute Nucleated RBC 0.0 Nucleated RBC % 0.0 Sodium 133 L Potassium 4.2 Chloride 101 Carbon Dioxide 26 Anion Gap 6 L BUN 14 D Creatinine 0.70 Estim Creat Clear Calc 89 Estimated GFR > 60 Glucose 150 H Calcium 8.2 L Blood Type O Positive Antibody Screen Negative Discharge Plan Discharge Patient Disposition: Home, Self-Care Discharge Instructions: EDDIE VALENTIN M.D [facility] [place] [address] POST-OPERATIVE DISCHARGE INSTRUCTIONS ANTERIOR TOTAL HIP ARTHROPLASTY 1. Move toes/feet up and down every hour while awake. 2. Be up walking every hour while awake. 3. Use cane in hand opposite of side of hip surgery or walker as comfort allows. Avoid sitting in a chair unless eating, receiving visitors or using the toilet. 4. When resting, lie on back with leg elevated above heart to minimize swelling. Significant swelling could indicate a blood clot and if this occurs, call the office (or go to the ER) to have a venous ultrasound performed. 5. Wound Care: Keep dry sponge on wound for 2 weeks. Use minimal tape. 6. May shower with dressing off. Patient Instructions: Precautions after Total Joint Replacement Surgery (DC), Total Hip Replacement (DC) Follow-up/Referrals: Eddie Valentin MD [Physician] - Keep Reg. Scheduled Appt. Discharge Medications: New acetaminophen 500 mg Tablet 1,000 mg PO Q6HR Qty: 90 0RF Eliquis 2.5 mg Tablet 2.5 mg PO Q12HR Qty: 69 0RF sennosides-docusate sodium [Senokot-S] 8.6-50 mg Tablet 2 tab-cap PO BID Qty: 60 0RF cephalexin 500 mg Capsule 500 mg PO Q6HR Qty: 48 0RF polyethylene glycol 3350 [Miralax] 17 gram Powder In Packet 17 g PO QAM Qty: 30 0RF oxycodone 5 mg Tablet 5 mg PO Q4H Qty: 40 0RF Continued lisinopril-hydrochlorothiazide [Zestoretic] 20-12.5 mg tablet 20 tablet PO QAM phentermine 37.5 mg Tablet 37.5 mg PO QAM Rx Instructions: must administer 30 minutes before or 1-2 hours after breakfast cholecalciferol (vitamin D3) 25 mcg (1,000 unit) Capsule 25 mcg PO HS Probiotic with Prebiotic 1 billion-250 cell-mg C
--- NOTE | 2022-02-12 07:07 | WPDANESPN ---
Anes - Prog Note Post-Op Date/Time: 02/12/22 07:07 Cardiovascular status: normal Respiratory status: normal Airway patency: baseline Mental status: baseline Post-Op hydration status: normal Vital Signs: Last Vital Signs Temp 36.0 C L 02/12/22 05:15 Pulse 101 H 02/12/22 05:15 Resp 20 02/12/22 05:15 BP 100/48 L 02/12/22 05:15 Pulse Ox 98 02/12/22 05:15 O2 Del Method Room Air 02/11/22 15:01 O2 Flow Rate 10 02/11/22 11:30 Pain Score (VAS): 2 I/O: Intake & Output 02/11/22 02/11/22 02/12/22 15:59 23:59 07:59 Intake Total 234 139 6465 Output Total 990 Balance 600 740 23 Laboratory Tests 02/12/22 05:36 02/12/22 05:36 02/11/22 02/12/22 02/12/22 07:26 05:36 05:36 WBC 14.2 H RBC 3.98 L Hgb 11.3 L Hct 34.9 L MCV 87.7 MCH 28.4 MCHC 32.4 RDW 13.9 Plt Count 258 MPV 11.6 H Immature Gran % (Auto) 0.4 Neut % (Auto) 71.7 Lymph % (Auto) 20.9 [place] % (Auto) 6.8 Eos % (Auto) 0.1 Baso % (Auto) 0.1 L Lymph # (Auto) 2.96 [place] # (Auto) 1.0 H Eos # (Auto) 0.0 Baso # (Auto) 0.0 Abs Immat Gran (auto) 0.05 H Absolute Neuts (auto) 10.2 H Absolute Nucleated RBC 0.0 Nucleated RBC % 0.0 Sodium 133 L Potassium 4.2 Chloride 101 Carbon Dioxide 26 Anion Gap 6 L BUN 14 D Creatinine 0.70 Estim Creat Clear Calc 89 Estimated GFR > 60 Glucose 150 H Calcium 8.2 L Blood Type O Positive Antibody Screen Negative Patient Feedback: Patient satisfied with anesthetic care.
[2022-02-12] MEDS: APIXABAN 2.5 MG TABLET PO (08:34)
[2022-02-12] MEDS: SENNA/DOCUSATE SODIUM TABLET 2 TAB PO (08:34)
[2022-02-12] MEDS: oxyCODONE HCL (*CRX) 5 MG TAB IR PO (08:34)
[2022-02-12] MEDS: lisinopriL 20 MG TABLET PO (08:35)
[2022-02-12] MEDS: polyethylene glycoL 3350 17 GM POWD.PACK PO (08:35)
[2022-02-12] MEDS: FAMOTIDINE 20 MG TABLET PO (08:35)
[2022-02-12] MEDS: CELECOXIB 200 MG CAPSULE PO (08:35)
[2022-02-12] MEDS: hydroCHLOROthiazide 25 MG TABLET PO (08:35)
[2022-02-12 10:16] VITALS: BP 110/56; PULSE 70; RESP 16; TEMP 36.6; O2SAT 100
== END 2022-02-12 11:53 | disposition home or self-care (01) ==
LOC: ANHSURGERY 06:00 → ANH2MED 13:00
PROVIDERS: Physician Assistant Surgical; PCP Physician Assistant; Visit Provider Orthopaedic Surgery
PROC: (CPT 27130; principal; 2022-02-11 07:30)
DX: M16.12 Unilateral primary osteoarthritis, left hip (principal); Z79.01 Long term (current) use of anticoagulants; F32.A Depression, unspecified; I10 Essential (primary) hypertension; E66.9 Obesity, unspecified; Z68.39 Body mass index [BMI] 39.0-39.9, adult
CPT/HCPCS: 27130; 36415; 73501; 80048; 85025; 86850; 86900; 86901; 97110; 97116; 97161; 97165; 97530; 97535; 99199; A9270; C1776; J0171; J0690; J1100; J1170; J2250; J2270; J2405; J2704; J2710; J2795; J3010; J3370; J7030; J7120

== ENCOUNTER 2022-06-10 17:48 | Emergency (ER) | payer OTHER, SELFPAY ==
[2022-06-10 18:13] VITALS: BP 154/84; PULSE 77; RESP 18; TEMP 36.3; O2SAT 99
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
== END 2022-06-10 18:23 | disposition home or self-care (01) ==
PROVIDERS: Emergency Provider Nurse Practitioner Family; PCP Physician Assistant
DX: J03.90 Acute tonsillitis, unspecified (principal); L04.9 Acute lymphadenitis, unspecified; I10 Essential (primary) hypertension
CPT/HCPCS: 87081; 87880; 99213; G0463

== ENCOUNTER 2023-10-04 07:19 | Outpatient (CLI) | payer OTHER, SELFPAY ==
--- NOTE | ~2023-10-04 | MM_ITS ---
EXAMINATION: MM screening souleymane BI w curt HISTORY: Screening mammogram TECHNIQUE: Craniocaudal and mediolateral oblique 3-D tomosynthesis images were obtained and synthetic 2-D images were generated. CAD analysis was submitted and interpreted. COMPARISON: 07/03/2021, 07/24/2019 bilateral screening mammogram examinations BREAST PARENCHYMAL COMPOSITION: The breasts are almost entirely fatty. FINDINGS: Approximately 8 x 22 mm circumscribed opacity is noted in the left superolateral subareolar area. Diagnostic left mammogram and left breast ultrasound examination are recommended. Otherwise no suspicious mass, architectural distortion, microcalcifications, skin thickening or retra ction of either breast is detected. There is no evidence of suspicious mass, calcification, or brenda ectural distortion to suggest malignancy in either breast. There has been no other suspicious interva l change. IMPRESSION: 1. Prostate by 22 mm circumscribed opacity in the superolateral left subareolar area 2. Diagnostic left mammogram and left breast ultrasound examination are recommended. BI-RADS Category 0: Incomplete: Needs additional imaging evaluation. Reviewed, dictated and finalized at location A. IMPRESSION: 1. Prostate by 22 mm circumscribed opacity in the superolateral left subareolar area 2. Diagnostic left mammogram and left breast ultrasound examination are recomme nded. BI-RADS Category 0: Incomplete: Needs additional imaging evaluation.
== END 2023-10-04 07:20 | disposition home or self-care (01) ==
PROVIDERS: PCP Family Medicine; Visit Provider Family Medicine
DX: Z12.31 Encounter for screening mammogram for malignant neoplasm of breast (principal); R92.8 Other abnormal and inconclusive findings on diagnostic imaging of breast
CPT/HCPCS: 77063; 77067

== ENCOUNTER 2023-11-03 10:24 | Outpatient (CLI) | payer OTHER, SELFPAY ==
--- NOTE | ~2023-11-03 | MMUS_ITS ---
EXAMINATION: MM diagnostic souleymane LT w curt, US breast LT limited HISTORY: 8 x 22 mm circumscribed superolateral left subareolar opacity TECHNIQUE: Additional 3-D tomosynthesis images of the left breast were performed and synthetic 2-D im ages were generated. CAD analysis was submitted and interpreted. High resolution targeted left subare olar breast ultrasound was performed. COMPARISON: Serial mammograms dating back to 12/22/2025 FINDINGS: MAMMOGRAPHIC FINDINGS: Previously reported approximately 8 by 22 mm circumscribed opacity is confirmed in the superolateral left subareolar area. ULTRASOUND: Circumscribed approximately 7.5 x 26.7 x 21.4 mm hypoechoic solid lesion is confirmed, with minimal i nternal vascularity, no suspicious shadowing. Ultrasound-guided biopsy is recommended. IMPRESSION: 1. Circumscribed 7.5 x 26.7 x 21.4 mm solid lesion in the superolateral left subareolar area 2. Ultrasound-guided biopsy is recommended BI-RADS category 4, suspicious findings. Dr. Irving telephoned the report and ultrasound-guided biopsy recommendation of the left subareolar mas s on November 03, 2023 at 1237 hours to Mary Alice Fernandez. Reviewed, dictated and finalized at location A. IMPRESSION: 1. Circumscribed 7.5 x 26.7 x 21.4 mm solid lesion in the superolateral left [place] bareolar area 2. Ultrasound-guided biopsy is recommended BI-RADS category 4, suspicious findings. Dr. Irving telephoned the report and ultrasound-guided biopsy recommendation of t he left subareolar mass on November 03, 2023 at 1237 hours to Gray Fernandez
== END 2023-11-03 10:25 | disposition home or self-care (01) ==
LOC: ANHIMG 10:26
PROVIDERS: PCP Family Medicine; Visit Provider Physician Assistant
DX: R92.8 Other abnormal and inconclusive findings on diagnostic imaging of breast (principal)
CPT/HCPCS: 76642; 77061; 77065; G0279

== ENCOUNTER 2025-05-13 10:09 | Outpatient (CLI) | payer OTHER, SELFPAY ==
--- OUTSIDE RECORDS SUMMARY | 2015-12-23 | XMS_ITS | Encounter Summary ---
Author Organization [facility] Healthcare Address [address] [place] [address] Care Team Providers Care Preschool Aide Name Role Phone Unavailable Primary Care Provider Unavailabl e Reason for Visit * Diagnostic Imaging (Routine) - Closed Specialty Diagnoses / Procedures Referred By Galo t Referred To Contact Procedures Breast Imaging Screening Outside Reference Meenakshi Littlejohn NP [address] [facility] [place] [id number] [place] [address] Phone: tel: fax: Referral ID Status Reason Start Date Expiration Date Visits Re quested Visits Authorized [id number] Closed 11/20/2023 12/19/2024 1 1 Encounter Details Date Type Department Care Team (Late st Contact Info) Description 12/23/2015 Hospital Encounter [facility] [address] [place] [id number] Social History Tobacco Use Types Packs/Day Years Used Date Smoking Tobacco: Never Smokeless Tobacco: Never Alcohol Use Standard Drinks/Week Comments Yes 0 (1 standard drink = 0.6 oz pur e alcohol) SOCIALLY Personal Safety Answer Date Recorded Getting School Help Needed Not on file 09/27 Comments Unknown Sex and Gender Information Value Date Recorded Sex Assigned at Not on file Legal Sex Female 3:02 PM CDT Gender Identity Not on file Sexual Orientation Not on file documented as of this encounter Plan of Treatment Not on file documented as of this encounter Procedures Procedure Name Priority Date/Time Associated Diagnosis Comments BREAST IMAGING MG SCREENING OUTSIDE REFERENCE Routine 12/23/2015 12:00 AM CDT documented in this encounter Results * Breast Imaging Screening Outside Reference (12/23/2015 12:00 AM CDT) Impressions [facility] - 11/20/2023 12:38 PM CDT These images are for Reference purposes only and have not been reviewed by [facility]. There will be no report generated by a [facility]iologist. Narrative [facility] - 11/20/2023 12:38 PM CDT EXAMINATION: Images For Reference Purposes Only us Meenakshi Littlejohn NP IMG MAMMO PROCEDURES Final Result [facility] documented in this encounter Visit Diagnoses Not on filedocumented in this encounter
--- OUTSIDE RECORDS SUMMARY | 2018-06-13 01:00 | XMS_ITS | Encounter Summary ---
Author Organization [facility] Healthcare Address [address] [place] [address] Care Team Providers Care Shaker Repairer Name Role Phone Unavailable Primary Care Provider Unavailabl e Reason for Visit * Diagnostic Imaging (Routine) - Closed Specialty Diagnoses / Procedures Referred By Galo t Referred To Contact Procedures Breast Imaging Screening Outside Reference Meenakshi Littlejohn NP [address] [facility] [place] [id number] [place] [address] Phone: tel: fax: Referral ID Status Reason Start Date Expiration Date Visits Re quested Visits Authorized [id number] Closed 11/20/2023 12/19/2024 1 1 Encounter Details Date Type Department Care Team (Late st Contact Info) Description 06/13/2018 Hospital Encounter [facility] [address] [place] [id number] Social History Tobacco Use Types Packs/Day Years [...] BREAST IMAGING MG SCREENING OUTSIDE REFERENCE Routine 06/13/2018 12:00 AM SEAMING MACHINE OPERATOR documented in this encounter Results * Breast Imaging Screening Outside Reference (06/13/2018 12:00 AM SEAMING MACHINE OPERATOR) Impressions [facility] - 11/20/2023 12:38 PM CDT These images are for Reference purposes only and have not been reviewed by [facility]. There will be no report generated by a [facility]iologist. Narrative [facility] - 11/20/2023 12:38 PM CDT EXAMINATION: Images For Reference Purposes Only us Meenakshi Littlejohn NP IMG MAMMO PROCEDURES Final Result [facility] documented in this encounter Visit Diagnoses Not on filedocumented in this encounter
--- OUTSIDE RECORDS SUMMARY | 2019-07-24 01:00 | XMS_ITS | Encounter Summary ---
Author Organization [facility] Healthcare Address [address] [place] [address] Care Team Providers Care Reference Investigator Name Role Phone Danna Marlow Primary Care Provider [phone] Reason for Visit * Diagnostic Imaging (Routine) - Closed Specialty Diagnoses / Procedures Referred By Galo t Referred To Contact Procedures Breast Imaging Screening Outside Reference Meenakshi Littlejohn NP [address] [facility] [id number] [place] [address] Phone: tel: fax: Referral ID Status Reason Start Date Expiration Date Visits Re quested Visits Authorized [id number] Closed 11/20/2023 12/19/2024 1 1 Encounter Details Date Type Department Care Team (Late st Contact Info) Description 07/24/2019 Hospital Encounter [facility] [address] [place] [id number] Social History Tobacco Use Types Packs/Day Years [...] BREAST IMAGING MG SCREENING OUTSIDE REFERENCE Routine 07/24/2019 12:00 AM SUPERVISING FLOORPERSON documented in this encounter Results * Breast Imaging Screening Outside Reference (07/24/2019 12:00 AM SUPERVISING FLOORPERSON) Impressions [facility] - 11/20/2023 12:38 PM CDT These images are for Reference purposes only and have not been reviewed by [facility]. There will be no report generated by a [facility]iologist. Narrative [facility] - 11/20/2023 12:38 PM CDT EXAMINATION: Images For Reference Purposes Only us Meenakshi Littlejohn TERMINATION CLERK IMG MAMMO PROCEDURES Final Result [facility] documented in this encounter Visit Diagnoses Not on filedocumented in this encounter Care Teams Reference Investigator Relationship Specialty Start Date End Date Danna Marlow PA [address] [place] [id number] PCP - General Gastroenterology 10/07/18 documented as of this encounter
--- NOTE | ~2025-05-13 | MM_ITS ---
EXAMINATION: MM screening [facility] BI w curt HISTORY: Screening TECHNIQUE: Craniocaudal and mediolateral oblique 3-D tomosynthesis images were obtained and synthetic 2-D images were generated. CAD analysis was submitted and interpreted. COMPARISON: Comparison to multiple prior studies sequentially, with oldest reviewed study dated 12/23/2015. BREAST PARENCHYMAL COMPOSITION: Not Dense: The breasts are almost entirely fatty. FINDINGS: Mass in the upper outer quadrant of the left breast anteriorly contains a tissue marker which was placed since 11/03/2023. This was reportedly a benign biopsy. No significant change from that date. There is no evidence of new suspicious mass, calcification, or architectural distortion to suggest malignancy in either breast. There has been no suspicious interval change. IMPRESSION: 1. No mammographic evidence of malignancy. 2. Recommend routine screening mammography in one year. BI-RADS Category 2: Benign finding(s). Reviewed, dictated and finalized at location B.
--- OUTSIDE RECORDS SUMMARY | 2025-05-13 10:41 | XMS_ITS | Clinical Summary ---
Author Organization [facility] Address [address] [place] [id number] Care Team Providers Care Goat Driver Name Role Phone Danna Marlow Primary Care Provider [phone] Allergies No known active allergies Medications quinapril-hydroc hlorothiazide (ACCURETIC) 20-12.5 mg per tablet Take 1 tablet by mouth daily 1 10/08/2018 Active meloxicam (MOBIC) 15 mg tablet 10/13/2018 Active cyclobenzaprine (FLEXERIL) 10 mg tablet Take 10 mg by mouth as needed for muscle spasms Active multivitamin-min erals-lutein (MULTIVITAMIN 50 PLUS) tablet Take by mouth Active acetaminophen (TYLENOL) 500 mg tablet Take 1,000 mg by mouth every 6 (six) hours as needed for pain Active piroxicam (FELDENE) 20 mg capsule 07/09/2019 Active orphenadrine ER (NORFLEX) 100 mg 12 hr tablet 07/09/2019 Active HYDROcodone-acet aminophen (NORCO) 7.5-325 mg per tablet TAKE 1 TABLET BY MOUTH TWICE A DAY NEEDED FOR PAIN 07/09/2019 Active Active Problems No known active problems Surgical History Surgery Date Site/Laterality Comments SECTION 1988 AND 1990 PARTIAL HYSTERECTOMY 2002 TONSILLECTOMY TUBAL LIGATION GALLBLADDER SURGERY 2020 BIOPSY gallbladder, 2020 COLONOSCOPY 2020 TOTAL HIP ARTHROPLASTY Left 2021 BREAST BIOPSY 12/15/2023 Left Medical History Medical History Date Comments Hypertension Obesity Allergic rhinitis Arthritis Family History Medical History Relation Name Comments Gout Brother Hypertension Brother Alcohol abuse Father Diabetes Father Hypertension Father Arthritis Mother Hypertension Mother Relation Name Status Comments Brother Father Mother Social History Tobacco Use Types Packs/Day Years Used Date Smoking Tobacco: Never Smokeless Tobacco: Never Tobacco Cessation:Counseling Given: Not Answered Alcohol Use Standard Drinks/Week Comments Yes 0 (1 standard drink = 0.6 oz pur e alcohol) SOCIALLY Personal Safety Answer Date Recorded Getting School Help Needed Not on file 09/27 Comments Unknown Sex and Gender Information Value Date Recorded Sex Assigned at Not on file Legal Sex Female 3:02 PM CDT Gender Identity Not on file Sexual Orientation Not on file Obstetrics History Last Filed Vital Signs Vital Sign Reading Time Taken Comments Blood Pressure - - Pulse - - Temperature - - Respiratory Rate - - Oxygen Saturation - - Inhaled Oxygen Concentration - - Weight 143.8 kg (317 lb) 12/15/2023 10:07 AM CDT Height 160 cm (5' 3) 12/15/2023 10:07 AM CDT Body Mass Index 56.15 12/15/2023 10:07 AM CDT Plan of Treatment Health Maintenance Due Date Last Done Comments Breast Cancer Screening-Mammogram 1966 Cervical Cancer Screening 1966 Colon Cancer Screening-Colonoscopy 1966 Depression Screening 1966 Hepatitis C Screening 1966 DTaP/Tdap/Td Vaccine (1 - Tdap) 1977 Hepatitis B Screening 1984 Regular Well Visit/Exam 18-64 1984 Zoster Vaccine (1 of 2) 2016 Covid-19 Vaccine (2 - 2024-2 6 season) 2025 03/24/2021 Influenza Vaccine (#1) 2025 Pneumococcal vaccine <65 Aged Out No longer eligible based on patient's age to complete this topic Medical Devices Implanted Type Area Insurance Actuary Device Identifier Shelf Expiration Date Model / Serial / Lot [employer] Ultraclip Bard 17ga 10cm 2 Trigger Permanent Ultrasound [id number] - [id number] Implanted:Qty: 1 on 12/15/2023 at [facility] [employer] [id number] / / Insurance [facility] Care Teams Goat Driver Relationship Specialty Start Date End Date Danna Marlow PA [address] [place] [id number] PCP - General Gastroenterology 10/07/18
== END 2025-05-13 10:10 | disposition home or self-care (01) ==
LOC: ANHFOHIMG 10:10
PROVIDERS: PCP Family Medicine; Visit Provider Family Medicine
DX: Z12.31 Encounter for screening mammogram for malignant neoplasm of breast (principal)
CPT/HCPCS: 77063; 77067